=== PATIENT | female | born 1980 | race Caucasian/White ===

== ENCOUNTER 2021-04-30 09:41 | Emergency (ER) | payer MEDICAID, SELFPAY ==
[2021-04-30 09:51] VITALS: BP 129/82; PULSE 67; RESP 16; TEMP 36.9; O2SAT 99; BMI 22.0
--- NOTE | 2021-04-30 09:57 | PC.NURSE ---
PT HAS 5CM LAC TO ANTERIOR DISTAL LOWER ARM. BLOOD OOZING FROM WOUND. PRESSURE BANDAGE APPLIED IN TRIAGE TO RIGHT ANTERIOR WRIST. NO BLEEDING NOTED FROM BANDAGE.
--- NOTE | 2021-04-30 10:37 | W.ED.WOUNDLC ---
HPI - Wound/Laceration General: Chief Complaint: Wound/Laceration Stated Complaint: RIGHT WRIST INJURY Time Seen by Provider: 04/30/21 09:57 History of Present Illness: HPI narrative: Patient sustained a laceration to her right hand and when she dropped a glass into the sink and the glass shattered and cut her hand today. Onset (ago): minute(s) Extremity Location: Right: hand Place: work Patient tetanus UTD: Yes Context: accidental Associated symptoms: Reports no associated symptoms; Denies chills or fever(s) Treatments prior to arrival: bandage Review of Systems Const: Denies: fever(s) or chills Skin/Breast: Reports: other (Laceration right hand) Psych: Denies: anxiety or depression Physical Exam Const: COMMON NORMALS: no acute distress GENERAL APPEARANCE: cooperative Extremity: OTHER: Below right thumb palmar aspect there is a laceration she has good range of motion the tendons and good nerve sensation Psych: COMMON NORMALS: mental status grossly normal Procedures Laceration Laceration 1: Site: upper extremity Side (If applicable): left Size (cm): 5 Description: linear and clean Depth: simple, single layer Local Anesthetic: lidocaine 1% Pre-repair: wound explored and irrigated extensively Skin layer closed with: nylon Size (cm): 4-0 Number of sutures: 9 Technique: simple, interrupted Course Vital Signs: Vital signs: Vital Signs Temperature 98.5 F 04/30/21 09:51 Pulse Rate 67 04/30/21 11:28 Respiratory Rate 16 04/30/21 11:28 Blood Pressure 127/76 04/30/21 11:28 Pulse Oximetry 97 04/30/21 11:28 Discharge Plan Discharge Patient Disposition: Home Clinical Impression: Laceration Condition: Stable Prescriptions: New cephalexin 500 mg capsule 500 mg PO Q8H 7 Days Qty: 21 RF: 0 Celebrex 100 mg capsule 100 mg PO BID Qty: 20 RF: 0 Discharge Orders: Discharge ED (Routine); Ordered 04/30/21 Ordered By: Navi Panchal Referrals: Fransisco Ortiz MD [Primary Care Provider] - Discharge Diet: Usual diet Discharge Activity: Increase activity as tolerated Patient Instructions: Care For Your Stitches (ED), Laceration (ED) Activity Restrictions/Additional Instructions: Sutures out in 7 days. Watch for signs and symptoms of infection. Use medications as directed. Change dressing daily. Can use Vaseline petroleum jelly or silver X ointment on top 1 to keep it moist. Coding Level of Care Code ED [employer] Helper for Rashawn Fwd Exam Expanded Problem Focused
[2021-04-30] MEDS: lidocaine 1% INJ 20 mL INTRADERMA (11:12)
[2021-04-30] MEDS: TRAMadol 50 mg Tablet PO (11:23)
[2021-04-30 11:28] VITALS: BP 127/76; PULSE 67; RESP 16; O2SAT 97
== END 2021-04-30 11:29 | disposition home or self-care (01) ==
PROVIDERS: Emergency Provider Nurse Practitioner Family; PCP Family Medicine
DX: S61.411A Laceration without foreign body of right hand, initial encounter (principal); W25.XXXA Contact with sharp glass, initial encounter
CPT/HCPCS: 12002; 96372; 99283

== ENCOUNTER → 2022-09-20 12:47 | Outpatient (BNVA) | payer MEDICAID, SELFPAY | PROVIDERS: PCP Family Medicine; Visit Provider Psychiatry & Neurology Neurology | DX: G43.919 Migraine, unspecified, intractable, without status migrainosus (principal); E23.7 Disorder of pituitary gland, unspecified; Q28.3 Other malformations of cerebral vessels; R25.1 Tremor, unspecified | CPT/HCPCS: 36415; 82306; 82607; 82746; 83735; 83921 ==

== ENCOUNTER 2022-10-06 07:09 | Outpatient (CLI) | payer MEDICAID, SELFPAY ==
--- NOTE | 2022-10-06 08:00 | MR_ITS ---
WS: [id number] MRA HEAD TECHNIQUE: Axial 3-D TOF images obtained with axial images and axial, sagittal, and coronal 2-D refor matted images. CLINICAL INFORMATION: G43.909 - Migraine, unspecified, not intractable, without... COMPARISON: MRI 2014 FINDINGS: Distal vertebral arteries are patent. Basilar artery is patent. Dominant distal LEFT vertebral artery . Normal vascularity to the DIRECTOR BLOOD BANK territory bilaterally. Small LEFT P1 segment. Persistent LEFT P CA. Both ICAs are patent at the skull base. Normal vascularity to the JOJO and MCA territories bilaterally . No evidence of proximal flow limiting stenosis or aneurysm. Small RIGHT A1 segment. MR/MR angio head wo con [id number] IMPRESSION: 1. No evidence of proximal flow limiting stenosis or aneurysm. 2. Small LEFT P1 segment with persistent LEFT DIRECTOR BLOOD BANK.
== END 2022-10-06 07:10 | disposition home or self-care (01) ==
PROVIDERS: PCP Family Medicine; Visit Provider Psychiatry & Neurology Neurology
DX: G43.909 Migraine, unspecified, not intractable, without status migrainosus (principal)
CPT/HCPCS: 70544

== ENCOUNTER 2022-10-20 07:39 | Outpatient (CLI) | payer MEDICAID, SELFPAY ==
--- NOTE | 2022-10-20 07:44 | MR_ITS ---
WS: [id number] MRI HEAD WITH CONTRAST TECHNIQUE: Sagittal T1, T2 axial, T2 axial FLAIR, axial susceptibility weighted imaging, axial diffus ion weighted images, and coronal T2 images were obtained. Pre and post-T1 axial and post T1 coronal i mages. ADC and FSPGR images. CLINICAL INFORMATION: G43.909 - Migraine, unspecified, not intractable, without... COMPARISON: MRA October 06, 2022 and MRI 2014 FINDINGS: No evidence of restricted diffusion to suggest acute ischemia. Ventricular system and basal cisterns are patent. No suspicious intracranial signal abnormalities. Normal drew-white differentiation. Emilia l posterior fossa. Normal vascular flow voids at the skull base. No extra axial fluid collections. No evidence of mass or mass effect. Mastoid air cells well aerated. Normal posterior nasopharynx. Mild mucosal thickening in the paranasa l sinuses. Polypoid mucosal thickening in the maxillary sinuses.No hemosiderin on the susceptibly chelsie ghted images. Normal optic chiasm and pituitary infundibulum. Temporal lobes and hippocampal formatio ns are normal in appearance. Normal cavernous sinuses and Meckel's cave. Incidental benign venous angioma RIGHT basal ganglia. No abnormal intracranial enhancement. Normal du ral venous sinuses. MR/MR head wo/w con [id number] IMPRESSION: 1. No evidence restricted diffusion to suggest acute ischemia. 2. No suspicious intracranial signal abnormalities. 3. Incidental benign venous angioma RIGHT basal ganglia unchanged since 2014. 4. Mild polypoid mucosal thickening paranasal sinuses. 5. No hemosiderin on susceptibly weighted images.
[2022-10-20] MEDS: gadobenate dimeglumine 20 mL vial IV (08:44)
== END 2022-10-20 07:40 | disposition home or self-care (01) ==
LOC: RAD 07:40
PROVIDERS: PCP Family Medicine; Visit Provider Psychiatry & Neurology Neurology
DX: G43.909 Migraine, unspecified, not intractable, without status migrainosus (principal)
CPT/HCPCS: 70553; A9577